=== PATIENT | female | born 1955 | race Two or more races ===

== ENCOUNTER 2021-05-14 09:42 | Outpatient (CLI) | payer OTHER | END 2021-05-14 09:53 | disposition home or self-care (01) | LOC: SONOGRAMA 09:42 | PROVIDERS: ATTEND Pathology Anatomic Pathology & Clinical Pathology | DX: E04.2 Nontoxic multinodular goiter (principal); D34 Benign neoplasm of thyroid gland; E06.3 Autoimmune thyroiditis ==

== ENCOUNTER 2025-04-25 09:27 | Outpatient (CLI) | payer OTHER | END 2025-04-25 09:28 | disposition home or self-care (01) | LOC: SONOGRAMA 09:27 | PROVIDERS: ATTEND Pathology Anatomic Pathology & Clinical Pathology | DX: D34 Benign neoplasm of thyroid gland (principal); E06.3 Autoimmune thyroiditis; E04.2 Nontoxic multinodular goiter ==